=== PATIENT | male | born 1995 | race Caucasian/White ===

== ENCOUNTER → 2019-11-08 09:25 | Outpatient (BNVA) | payer MEDICARE, MEDICAID, SELFPAY | PROVIDERS: Family Provider Family Medicine; PCP Family Medicine; Visit Provider Registered Nurse | DX: Z03.89 Encounter for observation for other suspected diseases and conditions ruled out (principal); F79 Unspecified intellectual disabilities; F42.4 Excoriation (skin-picking) disorder; F91.9 Conduct disorder, unspecified; F84.0 Autistic disorder; F50.81 Binge eating disorder; Z79.899 Other long term (current) drug therapy | CPT/HCPCS: 80061; 83036; 85025 ==

== ENCOUNTER → 2020-05-31 13:45 | Outpatient (BNVA) | payer MEDICAID, SELFPAY | PROVIDERS: Family Provider Family Medicine; PCP Family Medicine; Visit Provider Family Medicine | DX: Z03.89 Encounter for observation for other suspected diseases and conditions ruled out (principal); I10 Essential (primary) hypertension; L85.3 Xerosis cutis; L84 Corns and callosities; F91.9 Conduct disorder, unspecified | CPT/HCPCS: 80048; 83036 ==

== ENCOUNTER → 2020-09-19 13:23 | Outpatient (BNVA) | payer MEDICAID, SELFPAY | PROVIDERS: Family Provider Family Medicine; PCP Family Medicine; Visit Provider Nurse Practitioner Family | DX: R39.9 Unspecified symptoms and signs involving the genitourinary system (principal) | CPT/HCPCS: 81000 ==